=== PATIENT | female | born 1985 | race Caucasian/White ===

== ENCOUNTER 2021-07-19 16:19 | Emergency (ER) | payer OTHER | END 2021-07-19 18:27 | disposition home or self-care (01) | LOC: ERS 16:19 | DX: T63.461A Toxic effect of venom of wasps, accidental (unintentional), initial encounter (principal); L03.115 Cellulitis of right lower limb; Z79.899 Other long term (current) drug therapy ==

== ENCOUNTER 2025-01-08 14:01 | Outpatient (CLI) | payer BC | END 2025-01-08 14:02 | disposition home or self-care (01) | LOC: BICRAD 14:01 | PROVIDERS: ATTEND Nurse Practitioner Family | DX: M79.672 Pain in left foot (principal) ==